=== PATIENT | male | born 2000 | race African-American/Black ===

== ENCOUNTER 2021-09-22 17:29 | Emergency (ER) | payer OTHER ==
[2021-09-22 19:29] LABS: INFLUENZA A NAA NEGATIVE (NEGATIVE)
[2021-09-22 19:38] LABS: CORONAVIRUS 2019 SARS-COV-2 POSITIVE (NEGATIVE)
== END 2021-09-22 18:58 | disposition home or self-care (01) ==
LOC: FER 17:29
PROVIDERS: Physician Assistant Medical
DX: U07.1 COVID-19 (principal)
CPT/HCPCS: 99283; U0002